=== PATIENT | male | born 1995 | race African-American/Black ===

== ENCOUNTER 2017-03-19 17:16 | Inpatient (IN) | payer SELFPAY ==
[~2017-03-19] VITALS: Ht 182.9 cm; Wt 61.4 kg
--- NOTE | 2017-03-19 17:40 | NUR ---
DR PARK AT THE BEDSIDE FOR EVAL AND EXAM.
[2017-03-19] MEDS ORDERED: NALOXONE HCL 0.4 MG/ML AMPUL IV ONE (18:00)
[2017-03-19] MEDS ORDERED: IV NS 1000 ML 1,000 ML IV ONE (18:00)
[2017-03-19 18:08] LABS: BASOPHILS # (AUTO) 0.1 K/uL (0.0-8.0); BASOPHILS % (AUTO) 1.7 % (0.0-2.0); EOSINOPHILS # (AUTO) 0.1 K/uL (0.0-0.7); EOSINOPHILS % (AUTO) 1.2 % (0.0-7.0); HEMATOCRIT 42.9 % (36.7-47.1); HEMOGLOBIN 14.9 g/dL (12.5-16.3); MEAN CORPUSCULAR HEMOGLOBIN 29.5 uug (23.8-33.4); MEAN CORPUSCULAR HGB CONC 35 g/dL (32.5-36.3); MONOCYTES # (AUTO) 0.6 K/uL (2.0-10.0); MONOCYTES % (AUTO) 11.4 % (0-11); NEUTROPHILS # (AUTO) 2.7 K/uL (1.8-8.9); NEUTROPHILS % (AUTO) 48.7 % (31.5-64.5); PLATELET COUNT (AUTO) 248 K/uL (152-348); RED BLOOD CELL COUNT(AUTO) 5.05 MIL/uL (4.06-5.63); RED CELL DISTRIBUTION WIDTH 13.7 % (12.1-16.2); WHITE BLOOD COUNT (AUTO) 5.5 K/uL (3.6-10.2)
[2017-03-19 18:10] LABS: CALCIUM 9.3 mg/dL (8.5-10.1); CREATININE 0.8 mg/dL (0.6-1.3); POTASSIUM 3.4 mmol/L (3.5-5.1)
[2017-03-19] MEDS ORDERED: NALOXONE 2 MG/2 ML SYRINGE ONE (18:10)
[2017-03-19 18:21] LABS: TOTAL PROTEIN, SERUM 7.1 g/dL (6.4-8.2)
[2017-03-19 19:01] LABS: *BILIRUBIN,URIN NEGATIVE (NEGATIVE); *BLOOD, URINE Trace-intact (NEGATIVE); *COLOR,URINE YELLOW (YELLOW); *KETONES,URINE NEGATIVE (NEGATIVE); *PROTEIN,URINE TRACE (NEGATIVE); *UROBILINOGEN,URINE 0.2 E.U./dl (NORMAL); LEUKOCYTE ESTERASE ,URINE 1+ (NEGATIVE); NITRITE, URINE NEGATIVE (NEGATIVE); UGLUCOSE NEGATIVE (NEGATIVE)
[2017-03-19 19:05] LABS: *CLARITY,URINE SLIGHTLY HAZY (CLEAR)
[2017-03-19 19:07] LABS: MUCUS,URINE MANY /LPF (0-FEW); WBC,URINE 20-50 /HPF (0-3)
[2017-03-19 19:12] LABS: *AMPHETAMINE, URINE POSITIVE (NEGATIVE); *BARBITURATE, URINE NEGATIVE (NEGATIVE); *CANNABINOID, URINE POSITIVE (NEGATIVE); *COCCAINE, URINE NEGATIVE (NEGATIVE); *OPIATE, URINE NEGATIVE (NEGATIVE); *PHENCYCLIDINE SCREEN,URINE NEGATIVE (NEGATIVE)
[2017-03-19] MEDS ORDERED: IV NORMAL SALINE 1000 ML BAG IV ONE (19:30)
[2017-03-19] MEDS ORDERED: ONDANSETRON 4 MG/2 ML VIAL IV PRN (19:45)
[2017-03-19] MEDS ORDERED: MAGNESIUM HYDROXIDE 30 ML LIQUID UDC PO PRN (19:45)
[2017-03-19] MEDS ORDERED: Z GUARD REMEDY PASTE 57 GM TUBE TOP PRN (19:45)
[2017-03-19] MEDS ORDERED: ACETAMINOPHEN 325 MG TABLET PO PRN (19:45)
--- NOTE | 2017-03-19 20:25 | NUR ---
RECEIVED FROM ER VIA [facility], USHERED TO ROOM AND PLACED COMFORTABLY ON BED. PATIENT ASLEEP, ONLY AROUSABLE TO PAIN. UNABLE TO OBTAIN INFORMATION D/T PATIENT'S CONDITION. NO ACUTE DISTRESS NOTED AT THIS TIME. SR ON MONITOR. BODY ASSESSMENT DONE. PLACED IN A COMFORTABLE POSITION. WITH O2 VIA NC AT 2LPM. F/C INTACT AND PATENT,DRAINING CLOUDY YELLOW URINE. WITH 1:1 SITTER AT BEDSIDE FOR SAFETY. WILL CONTINUE TO MONITOR
--- NOTE | 2017-03-19 20:46 | NUR ---
Pt. admitted to TELE, under care of Dr. Robles Belongs List completed
[2017-03-19 20:50] VITALS: BP 131/67
[2017-03-19] MEDS ORDERED: CEFTRIAXONE 1 G in IV DEXTROSE 5% 50 ML IV SCH (21:00)
[2017-03-19] MEDS: IV NS 1000 ML 1,000 ML IV PRN (21:15)
[2017-03-20 00:27] VITALS: BP 130/65
--- NOTE | 2017-03-20 01:33 | NUR ---
PATIENT NOW AWAKE AND RESPONSIVE. ABLE TO ANSWER QUESTIONS. REORIENTED WHAT HAPPENED. CALM AT THIS TIME. WILL MONITOR
--- NOTE | 2017-03-20 01:40 | NUR ---
NOTED HEALED CUTS ON BILATERAL THIGH, PATIENT STATED THAT HE DOESNT HAVE ANY PLAN ON HARMING/KILLING HIMSELF, AND FOR THE THIGH IT IS SOMETHIN THAT HE DOES TO RELIEVE HIM FROM STRESS. STILL PREFERS TO CONTINUE MONITORING PATIENT. 1:1 SITTER AT BEDSIDE
[2017-03-20 04:27] VITALS: BP 124/65
--- NOTE | 2017-03-20 06:08 | NUR ---
PATIENT MORE AWAKE. ABLE TO MAKE NEEDS KNOWN. SINUS RHYTHM ON MONITOR. ALL DUE MEDS GIVEN ORDERED. CONTINUES WITH 1:1 SITTER AT BEDSIDE. NO SUICIDAL IDEATION AT BEDSIDE
[2017-03-20] MEDS: IV NS 1000 ML 1,000 ML IV PRN (06:22)
--- NOTE | 2017-03-20 06:53 | NUR ---
PATIENT SOUND ASLEEP. ONLY AROUSABLE TO PAIN. NO ACUTE DISTRESS NOTED. SINUS RHYTHM ON MONITOR
--- NOTE | 2017-03-20 06:54 | NUR ---
WILL ENDORSE TO AM NURSE Addendum: 03/20/17 at 0655 by MARINA LEES RN CONTINUES WITH 1:1 SITTER AT BEDSIDE. BED IN LOCK POSITION AND WITH ALARM
[2017-03-20] MEDS ORDERED: PANTOPRAZOLE SODIUM 40 MG VIAL IV SCH (07:00)
--- NOTE | 2017-03-20 07:30 | NUR ---
PT RECEIVED IN BED SLEEPING .SITTER AT BED SIDE.PT IS AXOX3.NO C/O PAIN NOTED.
[2017-03-20 08:25] VITALS: BP 100/62
--- NOTE | 2017-03-20 10:30 | NUR ---
PT WALK WITH THE PHYSICAL THERAPY WELL .NO DIZZINESS OR PAIN NOTED.TOLERATED WELL
[2017-03-20 10:40] LABS: BASOPHILS % (AUTO) 0.6 % (0.0-2.0); EOSINOPHILS # (AUTO) 0.1 K/uL (0.0-0.7); EOSINOPHILS % (AUTO) 1.4 % (0.0-7.0); HEMATOCRIT 41.7 % (36.7-47.1); HEMOGLOBIN 14.1 g/dL (12.5-16.3); LYMPHOCYTES # (AUTO) 1.3 K/uL (20.0-40.0); LYMPHOCYTES % (AUTO) 28.7 % (20.5-51.5); MEAN CORPUSCULAR HGB CONC 34 g/dL (32.5-36.3); MONOCYTES # (AUTO) 0.4 K/uL (2.0-10.0); MONOCYTES % (AUTO) 8.7 % (0.0-11.0); NEUTROPHILS # (AUTO) 2.6 K/uL (1.8-8.9); NEUTROPHILS % (AUTO) 60.6 % (38.5-71.5); PLATELET COUNT (AUTO) 190 K/uL (152-348); RED BLOOD CELL COUNT(AUTO) 4.85 MIL/uL (4.06-5.63); WHITE BLOOD COUNT (AUTO) 4.4 K/uL (3.6-10.2)
[2017-03-20 10:43] LABS: ALANINE AMINOTRANSFERASE 19 U/L (16-63); ALBUMIN 3.3 g/dL (3.4-5.0); ALKALINE PHOSPHATASE 79 U/L (50-136); ASPARTATE AMINOTRANSFERASE 16 U/L (15-37); BILIRUBIN,TOTAL 1.2 mg/dL (0.2-1.0); CALCIUM 8.4 mg/dL (8.5-10.1); CARBON DIOXIDE 28 mmol/L (21-32); CHLORIDE 106 mmol/L (98-107); CREATININE 0.7 mg/dL (0.6-1.3); GFR > 130 mL/min (>60); GLUCOSE 77 mg/dL (74-106); MAGNESIUM 1.9 mg/dL (1.8-2.4); PHOSPHOROUS 3.5 mg/dL (2.5-4.9); POTASSIUM 4.6 mmol/L (3.5-5.1); SODIUM SERUM 140 mmol/L (136-145); TOTAL PROTEIN, SERUM 6.1 g/dL (6.4-8.2); UREA NITROGEN, BLOOD 10 mg/dL (7-18)
[2017-03-20 11:03] LABS: THYROID STIMULATING HORMONE 0.391 mIU/mL (0.358-3.740)
--- NOTE | 2017-03-20 11:57 | NUR ---
D/C ORDERS RECEIVED NOTED AND CARRIED OUT.D/C INSTRUCTIONS AND EDUCATIONS GIVEN TO THE PT.D/C HEPLOCK PER MD ORDERS,PT VERBALIZED UNDERSTANDING ALL THE INSTRUCTIONS,PT LEFT THE FACILITY VIA PRIVATE CAR IN STABLE CONDITION.
== END 2017-03-20 11:55 | disposition home or self-care (01) | DRG 896 ==
LOC: EDBD 17:18 → ER 17:18 → TELE 20:04
PROVIDERS: ADMIT Family Medicine; ATTEND Family Medicine
DX: F19.129 Other psychoactive substance abuse with intoxication, unspecified (principal); G93.41 Metabolic encephalopathy; E87.6 Hypokalemia; F10.10 Alcohol abuse, uncomplicated; F12.10 Cannabis abuse, uncomplicated; F13.10 Sedative, hypnotic or anxiolytic abuse, uncomplicated; F15.10 Other stimulant abuse, uncomplicated; F17.210 Nicotine dependence, cigarettes, uncomplicated
CPT/HCPCS: 36415; 51702; 70030-TC; 70450; 71010; 80307; 83605; 83735; 84100; 84443; 85025; 87040; 87077; 87086; 93005; A4663; C9113; J0696; J2310; J7030; J7060